=== PATIENT | male | born 1990 | race Caucasian/White ===

== ENCOUNTER 2021-04-20 18:36 | Emergency (ER) | payer OTHER, SELFPAY ==
--- NOTE | 2021-04-20 18:41 | ED.SKABFB ---
HPI - Skin/Abscess/Foreign Bdy General Chief complaint: Skin/Abscess/Foreign Body Stated complaint: Cyst on side of eye/brow Time Seen by Provider: 04/20/21 18:44 Source: patient, RN notes reviewed and old records reviewed Mode of arrival: ambulatory Limitations: no limitations History of Present Illness HPI narrative: 30 year old male presents to express care with complaints of 2 day duration of abscess like lesion to lateral area of left eye region which is red with whitish center. Patient states that he has squeezed on tissue and some clear yellowish fluid came out of area. He states that today he has noted some swelling and mild redness under his left eye which concerned him, no change in vision or any pain to is left eye. Patient denies any fever, chills or sweats, no ear pain or any sinus congestion or drainage noted, MD complaint: abscess/boil Onset (ago): day(s) (2) Tetanus up to date: yes (07/06/2018) Location: face (left lateral eye area) Severity scale (1-10): 2 Treatments prior to arrival: bandages, attempted to drain pus at home and OTC topical medication Related Data Allergies Allergy/AdvReac Type Severity Reaction Status Date / Time No Known Allergies Allergy Unverified 11/02/16 08:13 Review of Systems Review of Systems: CONSTITUTIONAL: Denies fever, chills, or sweats. EYES: Denies visual changes, redness, or discharge. ENT: Denies rhinorrhea, congestion, sore throat, or otalgia. CARDIOVASCULAR: Denies chest pain, palpitations, or edema. RESPIRATORY: Denies cough or dyspnea. GASTROINTESTINAL: Denies abdominal pain, nausea, vomiting, or diarrhea. GENITOURINARY: Denies dysuria or hematuria. SKIN: red raised abscess with white central tissue left lateral eye region with some swelling and mild redness under left eye. MUSCULOSKELETAL: Denies back pain, joint pain, or myalgia. NEUROLOGIC: Denies headache, numbness, or weakness. PSYCHIATRIC: Denies anxiety or depression. All systems reviewed & are unremarkable except as noted in HPI and below PMFSH Past Medical History Medical History (Updated 04/20/21 @ 19:18 by Evangelina Russell NP) Eczema Surgical History Surgical History (Updated 04/20/21 @ 19:18 by Evangelina Russell NP) No history of previous surgery Family History Family History (Updated 04/20/21 @ 19:19 by Evangelina Russell NP) Grandparent Breast cancer Social History Social History (Updated 04/20/21 @ 19:19 by Evangelina Russell NP) Smoking status: Never smoker Alcohol intake: current Alcohol use details: social Substance use: never Living arrangements: with family Additional occupation/education comments: Nurse Gender identity (if verbalized by the patient): Male Exam Narrative: GENERAL: Well-appearing, well-nourished, and in no acute distress. HEAD: Normocephalic, atraumatic. EYES: PERRLA and EOMI.Minimal redness with swelling under left eye with no visual changes or acute eye pain.no swelling to eye lids ENT: Nares clear, no rhinorrhea or epistaxis. Mucous membranes moist.TM's normal with goo light reflex, throat pink with no lesions exudates or tonsil swelling. NECK: Supple. no lymphadenopathy CHEST: Clear to auscultation. No respiratory distress.SAO2 99% on room air HEART: Regular rate and rhythm. No murmur heard. Normal peripheral pulses. ABDOMEN: Soft, nontender, nondistended, normal active bowel sounds. EXTREMITIES: Normal range of motion. No edema. SKIN: Warm, dry, 0.5cm red tissue to lateral left eye area tender fluctuant with whitish center. Patient admits that he had squeezed on tissue and got some yellowish clear drainage from area prior to arrival. Needle aspiration performed to abscess with bloody serous drainage small amount obtained, cleansed and band aide applied. Wound care reviewed with patient. NEURO: No focal deficits. Alert and oriented x3. Course Course Level of Care: Express Care Visit Procedures Abscess I/D left distal eye area: Date
[2021-04-20 18:44] VITALS: BP 146/98; PULSE 69; RESP 16; TEMP 36.3; O2SAT 99
== END 2021-04-20 19:07 | disposition home or self-care (01) ==
PROVIDERS: Emergency Provider Registered Nurse
DX: L02.01 Cutaneous abscess of face (principal)
CPT/HCPCS: 10160; 99213; G0463